=== PATIENT | female | born 1960 | race Caucasian/White ===

== ENCOUNTER 2022-01-12 07:21 | Outpatient (CLI) | payer OTHER, SELFPAY ==
--- NOTE | 2022-01-12 07:31 | CT_ITS ---
WS: [email or web address] CT CHEST, ABDOMEN AND PELVIS WITHOUT CONTRAST. HISTORY: ABNORMAL CHEST XRAY/ABDOMINAL BLOATING/PELVIC PAIN TECHNIQUE: Contiguous 5 mm axial imaging performed through the chest, abdomen and pelvis without IV c ontrast, oral contrast has been provided. Coronal and sagittal reformats chest. Coronal and sagittal reformats through the abdomen and pelvis. All CT scans at [facility] use at least one of thes e dose optimization techniques: automated exposure control; mA and/or kV adjustment per patient size (includes targeted exams where dose is matched to clinical indication); or iterative reconstruction. CONTRAST: None DLP: 1023.58 mGy.cm COMPARISON: None available. Chest CT: No pulmonary nodule or mass. No pneumonia. Lungs are clear and well aerated. Mild atheroscl erotic plaque within the thoracic aorta. No aneurysm. Normal size pulmonary artery. No mediastinal or hilar adenopathy. There is a very small amount of residual oral contrast in the distal esophagus. He art size is normal with no pericardial effusion. Abdomen CT: There is very slightly enlarged. No bile duct dilatation is evident without contrast. Gal lbladder is contracted. No adjacent inflammation. Normal size spleen. Very mildly prominent adrenal g lands. Mild perinephric stranding with no obstruction. No solid mass identified. Mild atherosclerosis abdominal aorta extending into the iliac arteries. Minimally distended stomach with oral contrast. No small bowel obstruction. There is contrast noted i ntermittently throughout the colon. No obstructing lesions are identified. There is some very mild wa ll thickening involving the hepatic flexure but this is probably due to underdistention. Similar find ings are noted throughout the transverse and descending colon. There are a few scattered sigmoid dive rticula. No acute diverticulitis. No adjacent stranding. Pelvic CT: No free fluid in the pelvis. Uterus is not identified. No pelvic mass. Mild degenerative curvature lumbar spine. CT/CT chest abd pel wo con IMPRESSION: 1. Negative chest CT. No mass or nodules or pneumonia. 2. Mild colonic wall thickening without adjacent inflammation. May be due to u nderdistention. Mild colitis not completely excluded. If the patient has not sanders d a colonoscopy recently this should be considered to evaluate for early neopla stic changes. 3. No ascites or adenopathy. 4. Atherosclerosis aorta.
[2022-01-12] MEDS: iohexol 300 mg/mL 50 mL Btl PO (09:21)
== END 2022-01-12 07:22 | disposition home or self-care (01) ==
LOC: RAD 07:22
PROVIDERS: PCP Family Medicine; Visit Provider Family Medicine
DX: R93.89 Abnormal findings on diagnostic imaging of other specified body structures (principal); R14.0 Abdominal distension (gaseous); R10.2 Pelvic and perineal pain; I70.0 Atherosclerosis of aorta
CPT/HCPCS: 71250; 74176

== ENCOUNTER 2022-01-23 07:50 | Outpatient (CLI) | payer OTHER, SELFPAY ==
--- NOTE | 2022-01-23 08:00 | US_ITS ---
WS: [email or web address] RENAL ULTRASOUND HISTORY: CHRONIC KIDNEY DZ-STAGE 3 COMPARISON: CT 01/12/2022 TECHNIQUE: 2-D and color Doppler imaging of the kidney submitted. Right kidney: 7.8 cm x 3.8 cm x 4.9 cm. Mild atrophy with increased echogenicity. No mass or obstruction. Left kidney: 7.6 cm x 3.3 cm x 5.2 cm. Mild atrophy with increased echogenicity. No mass or obstruction. Aorta: Mild atherosclerotic changes with no aneurysm. Urinary Bladder: Normal distention. US/US renal BI* [id number] IMPRESSION: Mild renal atrophy and chronic medical renal disease.
== END 2022-01-23 07:51 | disposition home or self-care (01) ==
LOC: RAD 07:51
PROVIDERS: PCP Family Medicine; Visit Provider Nurse Practitioner Family
DX: N18.30 Chronic kidney disease, stage 3 unspecified (principal)
CPT/HCPCS: 76770

== ENCOUNTER → 2022-02-01 09:28 | Outpatient (BNVA) | payer OTHER, SELFPAY | PROVIDERS: PCP Family Medicine; Visit Provider Internal Medicine Rheumatology | DX: M19.90 Unspecified osteoarthritis, unspecified site (principal); Z11.59 Encounter for screening for other viral diseases; Z79.899 Other long term (current) drug therapy; N18.30 Chronic kidney disease, stage 3 unspecified; B19.20 Unspecified viral hepatitis C without hepatic coma; M77.11 Lateral epicondylitis, right elbow; M70.61 Trochanteric bursitis, right hip; M70.62 Trochanteric bursitis, left hip; Y93.9 Activity, unspecified; Z90.710 Acquired absence of both cervix and uterus; Z71.85 Encounter for immunization safety counseling; F17.200 Nicotine dependence, unspecified, uncomplicated | CPT/HCPCS: 36415; 72170; 73130; 73562; 73630; 82306; 85651; 86038; 86140; 86200; 86431; 86480; 86704; 87340; 87522; 99204 ==

== ENCOUNTER 2022-03-08 10:12 | Outpatient (CLI) | payer OTHER, SELFPAY ==
--- NOTE | 2022-03-08 10:21 | MM_ITS ---
WS: [email or web address] VIEWS: MLO and CC views both breasts. 3D digital tomosynthesis is also included in this exam. Comparison made with prior exam of 07/30/2009, 08/01/2010, 12/05/2011, 11/25/2014, 03/23/2016, 08/07/2017. . Findings: There was no sign of mass, architectural distortion or suspicious calcification in either breast. Sc attered fibroglandular densities MM/[place] [id number] Impression: BI-RADS: 2-Benign FOLLOW-UP: 1 Year Follow-up This mammogram was also analyzed by the [employer].
== END 2022-03-08 10:13 | disposition home or self-care (01) ==
PROVIDERS: PCP Family Medicine; Visit Provider Family Medicine
DX: Z12.31 Encounter for screening mammogram for malignant neoplasm of breast (principal)
CPT/HCPCS: 77063; 77067

== ENCOUNTER → 2022-06-12 13:45 | Outpatient (BNVA) | payer OTHER, SELFPAY | PROVIDERS: PCP Family Medicine; Visit Provider Internal Medicine Rheumatology | DX: M15.9 Polyosteoarthritis, unspecified (principal); Z71.85 Encounter for immunization safety counseling; Z79.899 Other long term (current) drug therapy; M70.62 Trochanteric bursitis, left hip; M70.61 Trochanteric bursitis, right hip; Y93.9 Activity, unspecified; M77.11 Lateral epicondylitis, right elbow; Z82.61 Family history of arthritis; N18.9 Chronic kidney disease, unspecified | CPT/HCPCS: 99214 ==

== ENCOUNTER → 2023-01-16 10:20 | Outpatient (BNVA) | payer OTHER, SELFPAY | PROVIDERS: PCP Family Medicine; Visit Provider Nurse Practitioner Family | DX: L85.3 Xerosis cutis (principal); D22.5 Melanocytic nevi of trunk; L81.4 Other melanin hyperpigmentation; L57.8 Other skin changes due to chronic exposure to nonionizing radiation; L82.1 Other seborrheic keratosis; L57.0 Actinic keratosis; Z71.89 Other specified counseling | CPT/HCPCS: 17004; 99213 ==

== ENCOUNTER 2023-09-19 11:12 | Outpatient (CLI) | payer OTHER, SELFPAY ==
--- NOTE | 2023-09-19 11:18 | CT_ITS ---
WS: [email or web address] CT ABDOMEN PELVIS TECHNIQUE: Noncontrast CT of the abdomen and pelvis with coronal and sagittal reformatted images. CLINICAL INFORMATION: ACUTE ABDOMINAL PAIN/CHRONIC KIDNEY DZ COMPARISON: None. DLP: 270.[address] scans at [facility] use at least one of these dose optimization techniques: automated e xposure control; mA and/or kV adjustment per patient size (includes targeted exams where dose is matc hed to clinical indication); or iterative reconstruction. FINDINGS: Prior appendectomy. Prior hysterectomy. Lung bases are well aerated. Noncontrast liver and spleen are normal. Normal GE junction. Adrenal glands are normal. Noncontrast pancreas is normal. No hydronephr osis in either kidney. Normal caliber abdominal aorta. Mild aortic calcification. Sigmoid diverticulosis. No evidence of acute diverticulitis. Mild lumbar curve. Disc space narrowing worse at L4-5 with broad-based central disc protrusion. IMPRESSION: 1. No acute findings in the abdomen or pelvis. 2. Prior hysterectomy. 3. Prior appendectomy. 4. Sigmoid diverticulosis. No evidence of acute diverticulitis. 5. No hydronephrosis in either kidney. 6. Mild disc bulging L4-5 with broad-based central protrusion with mild central canal stenosis.
[2023-09-19] MEDS: iohexol 350 mg/mL 500 mL Btl (per mL) PO (12:39)
== END 2023-09-19 11:13 | disposition home or self-care (01) ==
LOC: RAD 11:13
PROVIDERS: PCP Family Medicine; Visit Provider Family Medicine
DX: R10.9 Unspecified abdominal pain (principal); N18.9 Chronic kidney disease, unspecified; Z90.89 Acquired absence of other organs; Z90.710 Acquired absence of both cervix and uterus; K57.30 Diverticulosis of large intestine without perforation or abscess without bleeding; M51.36 Other intervertebral disc degeneration, lumbar region; M48.061 Spinal stenosis, lumbar region without neurogenic claudication
CPT/HCPCS: 74176; Q9967

== ENCOUNTER 2023-09-19 11:12 | Outpatient (CLI) | payer OTHER, SELFPAY ==
--- NOTE | 2023-09-19 11:21 | US_ITS ---
WS: [email or web address] Complete ABDOMINAL ULTRASOUND HISTORY: HX OF HEPATITIS C/ABD PAIN COMPARISON: None available. Liver: 11.6 cm in length. Normal size liver. There are prominent, echogenic portal triads. No mass or bile duct dilatation. Portal Vein: Normal hepatopetal flow with monophasic waveform. Gallbladder: Normally distended gallbladder with no stones or wall thickening. CBD: 0.3 cm Pancreas: Normal size and echogenicity. Right kidney: 7.2 cm x 4.3 x 4.5 cm. Cortex:1.0 cm. Normal size and echogenicity. No hydronephrosis or mass. Left kidney: 8.2 cm x 3.8 cm x 4.8 cm. Cortex: 1.0 cm. Normal size and echogenicity. No hydronephrosis or mass. Spleen: Normal. Aorta and IVC: Unremarkable abdominal aorta and IVC. Impression: 1. Normal size liver. 2. Prominent, echogenic portal triads. This is a nonspecific finding but can be seen with thin body h abitus and acute hepatitis. 3. Normal gallbladder. 4. No bile duct dilatation.
== END 2023-09-19 11:13 | disposition home or self-care (01) ==
LOC: RAD 11:13
PROVIDERS: PCP Family Medicine; Visit Provider Family Medicine
DX: Z86.19 Personal history of other infectious and parasitic diseases (principal); R10.9 Unspecified abdominal pain
CPT/HCPCS: 76700

== ENCOUNTER 2024-04-25 13:51 | Outpatient (CLI) | payer OTHER, SELFPAY ==
--- NOTE | 2024-04-25 13:55 | MM_ITS ---
WS: [email or web address] BILATERAL 3D TOMOSYNTHESIS DIGITAL SCREENING MAMMOGRAPHY WITH CAD CLINICAL INFORMATION: SCREENING HISTORY: Screening mammogram. No current complaints. COMPARISON: 2021 TECHNIQUE: Bilateral CC and MLO views. FINDINGS: The breasts are composed of heterogeneous fibroglandular density tissue, which can limit the detectio n of small underlying mass lesions. No suspicious mass, asymmetry, calcifications, or architectural d istortion. No evidence of malignancy. A few tiny incidental punctate calcifications. Vascular calcifi cations. MM/[place] [id number] IMPRESSION: BI-RADS: 2-Benign FOLLOW UP: 1 Year Follow-up Recommend return to annual screening mammography.
== END 2024-04-25 13:52 | disposition home or self-care (01) ==
LOC: RAD 13:51
PROVIDERS: PCP Family Medicine; Visit Provider Family Medicine
DX: Z12.31 Encounter for screening mammogram for malignant neoplasm of breast (principal); R92.333 Mammographic heterogeneous density, bilateral breasts; R92.1 Mammographic calcification found on diagnostic imaging of breast
CPT/HCPCS: 77063; 77067

== ENCOUNTER 2024-08-25 11:17 | Outpatient (CLI) | payer OTHER, SELFPAY ==
[2024-08-25 12:37] LABS: Albumin Level 3.9 g/dL (3.5-5.2); Anion Gap 14.1 (5-19); Blood Urea Nitrogen 16 mg/dL (8-23); Calcium 8.8 mg/dL (8.5-10.5); Carbon Dioxide 28 mmol/L (22-29); Chloride 101 mmol/L (98-107); Glomerular Filtration Rate 41.5 mL/min (90-130); Glucose 69 mg/dL (65-115); Phosphorus 2.6 mg/dL (2.5-4.5); Potassium 4.1 mmol/L (3.5-5.1); Sodium 139 mmol/L (136-145)
[2024-08-25 12:41] LABS: Calcium 8.9 mg/dL (8.5-10.5)
[2024-08-25 12:44] LABS: Parathyroid Hormone 89.6 pg/mL (15-65)
== END 2024-08-25 11:18 | disposition home or self-care (01) ==
LOC: LAB 11:20
PROVIDERS: PCP Family Medicine; Visit Provider Internal Medicine Nephrology
DX: N18.32 Chronic kidney disease, stage 3b (principal); N25.81 Secondary hyperparathyroidism of renal origin
CPT/HCPCS: 36415; 80069; 82310; 83970

== ENCOUNTER 2024-11-25 14:20 | Outpatient (CLI) | payer OTHER, SELFPAY ==
[2024-11-25 15:06] LABS: Albumin Level 4.3 g/dL (3.5-5.2); Anion Gap 12.3 (5-19); Blood Urea Nitrogen 13 mg/dL (8-23); Calcium 9.1 mg/dL (8.5-10.5); Carbon Dioxide 29 mmol/L (22-29); Chloride 102 mmol/L (98-107); Glomerular Filtration Rate 38.1 mL/min (90-130); Glucose 95 mg/dL (65-115); Potassium 4.3 mmol/L (3.5-5.1); Sodium 139 mmol/L (136-145)
[2024-11-25 15:17] LABS: Calcium 9.3 mg/dL (8.5-10.5); Parathyroid Hormone 108.3 pg/mL (15-65)
== END 2024-11-25 14:21 | disposition home or self-care (01) ==
LOC: LAB 14:24
PROVIDERS: PCP Family Medicine; Visit Provider Internal Medicine Nephrology
DX: N18.32 Chronic kidney disease, stage 3b (principal); N25.81 Secondary hyperparathyroidism of renal origin
CPT/HCPCS: 36415; 80069; 82310; 83970

== ENCOUNTER → 2024-12-24 14:39 | Outpatient (BNVA) | payer OTHER, SELFPAY | PROVIDERS: PCP Family Medicine; Visit Provider Nurse Practitioner Family | DX: L82.1 Other seborrheic keratosis (principal); L85.3 Xerosis cutis; D22.5 Melanocytic nevi of trunk; L81.4 Other melanin hyperpigmentation; L57.8 Other skin changes due to chronic exposure to nonionizing radiation; D48.5 Neoplasm of uncertain behavior of skin; L57.0 Actinic keratosis | CPT/HCPCS: 11102; 17000; 99213 ==

== ENCOUNTER → 2025-03-02 11:18 | Outpatient (BNVA) | payer OTHER, SELFPAY | PROVIDERS: PCP Family Medicine; Visit Provider Nurse Practitioner Family | DX: L82.1 Other seborrheic keratosis (principal); D22.5 Melanocytic nevi of trunk; L81.4 Other melanin hyperpigmentation; L57.8 Other skin changes due to chronic exposure to nonionizing radiation; Z08 Encounter for follow-up examination after completed treatment for malignant neoplasm; Z85.828 Personal history of other malignant neoplasm of skin; L57.0 Actinic keratosis | CPT/HCPCS: 17000; 99213 ==

== ENCOUNTER → 2025-04-15 13:33 | Outpatient (BNVA) | payer OTHER, SELFPAY | PROVIDERS: PCP Family Medicine; Visit Provider Nurse Practitioner Family | DX: C44.622 Squamous cell carcinoma of skin of right upper limb, including shoulder (principal); L81.4 Other melanin hyperpigmentation; L57.8 Other skin changes due to chronic exposure to nonionizing radiation; Z08 Encounter for follow-up examination after completed treatment for malignant neoplasm; Z85.828 Personal history of other malignant neoplasm of skin; L57.0 Actinic keratosis | CPT/HCPCS: 17000; 99213 ==

== ENCOUNTER 2025-04-27 13:33 | Outpatient (CLI) | payer OTHER, SELFPAY ==
--- NOTE | 2025-04-27 13:40 | MM_ITS ---
WS: [email or web address] BILATERAL 3D TOMOSYNTHESIS DIGITAL SCREENING MAMMOGRAPHY WITH CAD CLINICAL INFORMATION: SCREENING HISTORY: Screening mammogram. No current complaints. COMPARISON: 2023 TECHNIQUE: Bilateral CC and MLO views. FINDINGS: The breasts are composed of heterogeneous fibroglandular density tissue, which can limit the detection of small underlying mass lesions. No suspicious mass, asymmetry, calcifications, or architectural distortion. No evidence of malignancy. Vascular calcification. A few incidental punctate calcifications. Dense parenchymal nodularity is unchanged. MM/MM [facility] tomosynthesis [id number] IMPRESSION: DENSITY: The breasts are heterogeneously dense, which may obscure small masses. BI-RADS: 2 - Benign FOLLOW UP: 1 Year Follow-up Recommend return to annual screening mammography.
== END 2025-04-27 13:34 | disposition home or self-care (01) ==
PROVIDERS: PCP Family Medicine; Visit Provider Family Medicine
DX: Z12.31 Encounter for screening mammogram for malignant neoplasm of breast (principal); R92.333 Mammographic heterogeneous density, bilateral breasts
CPT/HCPCS: 77063; 77067

== ENCOUNTER → 2025-04-30 07:56 | Outpatient (BNVA) | payer OTHER, SELFPAY | PROVIDERS: PCP Family Medicine; Visit Provider Dermatology | DX: D48.5 Neoplasm of uncertain behavior of skin (principal) | CPT/HCPCS: 11622; 13132 ==

== ENCOUNTER → 2025-05-14 09:31 | Outpatient (BNVA) | payer OTHER, SELFPAY | PROVIDERS: PCP Family Medicine; Visit Provider Orthopaedic Surgery | DX: S83.242A Other tear of medial meniscus, current injury, left knee, initial encounter (principal); W10.8XXA Fall (on) (from) other stairs and steps, initial encounter | CPT/HCPCS: 73560; 73565; 99204 ==

== ENCOUNTER 2025-05-29 11:30 | Oncology outpatient (recurring) (ONCR) | payer OTHER, SELFPAY ==
[2025-05-13 15:41] LABS: Hematocrit 55.1 % (36-47); Hemoglobin 18.20 g/dL (11.27-16.99); Mean Corpuscular HGB Conc 33.0 g/dL (30-55); Mean Corpuscular Hemoglobin 33.8 pg (27-33); Mean Corpuscular Volume 102.4 fl (85-98); Nucleated Red Blood Cells % 0 %; Platelet Count 210 10^3/cmm (157-399); Red Blood Count 5.38 10^6/uL (3.85-5.65); White Blood Count 5.86 10^3/uL (3.29-11.43)
[2025-05-13 15:57] LABS: Alanine Aminotransferase 34 U/L (0-33); Albumin Level 4.2 g/dL (3.5-5.2); Alkaline Phosphatase 100 U/L (35-105); Anion Gap 15.4 (5-19); Aspartate Amino Transferase 41 U/L (0-32); Blood Urea Nitrogen 16 mg/dL (8-23); Calcium 9.1 mg/dL (8.5-10.5); Carbon Dioxide 26 mmol/L (22-29); Chloride 101 mmol/L (98-107); Creatinine Clr Calc Pharmacy 35.2116; Ferritin 39 ng/mL (15-150); Globulin 3.0 g/dL (1.3-4.6); Glucose 88 mg/dL (65-115); Iron 131 ug/dL (37-145); Osmolality Calculated 287 mOsm/kg (285-295); Potassium 4.4 mmol/L (3.5-5.1); Sodium 138 mmol/L (136-145); Total Iron Binding Capacity 253 mcg/dl; Total Protein 7.2 g/dL (6.6-8.7); Unsaturated Iron Binding 122 ug/dL (112-347); Uric Acid 8.1 mg/dL (2.4-5.7)
[2025-05-15 12:07] LABS: Leukemia Profile (BBPL) See Report
[2025-05-16 18:34] LABS: BCR ABL1 (IS) 0.000 (0.000); BCR ABL1/ALB1 % 0.000 (0.000); P190 BCR ALB1 NOT DETECTED; P190 BCR ALB1 Yes Test Yes; P210 BCR ALB1 NOT DETECTED; P210 BCR ALB1 Yes Test Yes; Source blood
[2025-05-25 11:43] LABS: Hematocrit 55.2 % (36-47); Hemoglobin 18.20 g/dL (11.27-16.99); Mean Corpuscular HGB Conc 33.0 g/dL (30-55); Mean Corpuscular Hemoglobin 34.7 pg (27-33); Mean Corpuscular Volume 105.1 fl (85-98); Nucleated Red Blood Cells % 0 %; Platelet Count 189 10^3/cmm (157-399); Red Blood Count 5.25 10^6/uL (3.85-5.65); White Blood Count 5.97 10^3/uL (3.29-11.43)
[2025-05-25 12:03] LABS: Alanine Aminotransferase 31 U/L (0-33); Albumin Level 3.8 g/dL (3.5-5.2); Alkaline Phosphatase 100 U/L (35-105); Anion Gap 16.3 (5-19); Aspartate Amino Transferase 44 U/L (0-32); Blood Urea Nitrogen 18 mg/dL (8-23); Calcium 8.6 mg/dL (8.5-10.5); Carbon Dioxide 25 mmol/L (22-29); Chloride 103 mmol/L (98-107); Creatinine Clr Calc Pharmacy 30.8101; Ferritin 24 ng/mL (15-150); Globulin 2.6 g/dL (1.3-4.6); Glucose 77 mg/dL (65-115); Osmolality Calculated 291 mOsm/kg (285-295); Potassium 4.3 mmol/L (3.5-5.1); Sodium 140 mmol/L (136-145); Total Protein 6.4 g/dL (6.6-8.7)
--- NOTE | 2025-05-27 13:34 | MR_ITS ---
WS: [email or web address] MRI LEFT KNEE HISTORY: L KNEE PAIN COMPARISON: Radiograph 05/14/2025 Anterior cruciate ligament: ACL is intact. There is a small amount of increased signal in the central ligament. Posterior cruciate ligament: Intact. Medial collateral ligament: Small amount of fluid along the MCL. No tear. Posterior lateral corner structures: Intact. Medial menisci: Slightly globular, rounded shape of the posterior horn towards the meniscal root. Anterior horn is normal. Lateral meniscus: Intact. Normal signal, size and shape. Extensor mechanism: Distal quadriceps tendon and patellar tendons are intact. Fluid and soft tissue: Moderate-sized suprapatellar joint effusion. No Orozco's cyst. Osseous and articular structures: Patellofemoral compartment: Moderate narrowing patellofemoral joint. Mild diffuse chondromalacia. No fracture or marrow edema. Medial compartment: Moderate narrowing of the medial compartment. Diffuse thinning and fissuring of the cartilage. No marrow edema. Lateral compartment: Mild narrowing of the lateral compartment with thinning and fissuring of the cartilage. Soft tissue density of low signal on all sequences is identified in the central knee joint associated with the medial tibial spine. This is low signal extends along the superior surface of the tibial spine and is closely associated with the PCL. The exact site of this signal abnormality is not certain. This may be a flipped meniscal fragment. The source of this could be the abnormal contour of the posterior horn medial meniscus. If there was a small ACL tear not evident this may explain that finding. No fractures. May be a cartilage fragment. MR/MR knee LT wo con* [id number] IMPRESSION: 1. No ACL tear. 2. Unexplained low signal intra-articular focus leg along the superior medial tibial spine. Etiologies to consider are a meniscal fragment, partial tear of t he ACL or cartilage lesion. 3. There is a globular shape of the posterior horn medial meniscus towards the meniscal root. This may be the source of the intra-articular body. 4. Moderate narrowing of the patellofemoral and medial compartments with fissu ring of the cartilage. 5. Mild narrowing lateral compartment with chondromalacia. 6. Mild MCL sprain. 7. Moderate size suprapatellar joint effusion.
--- NOTE | 2025-05-27 13:35 | XR_ITS ---
WS: [email or web address] Exam: XR chest 2V* [id number] Date/Time of Exam: 05/27/2025 1:42 PM Reason For Exam: polycythemia Comparison 03/26/2016. The lungs are fully inflated and clear. Normal cardiomediastinal silhouette. No pleural effusions. Bony structures are intact. XR/XR chest 2V* [id number] IMPRESSION: 1. Negative chest.
[2025-05-27 15:48] LABS: Hematocrit 59.5 % (36-47); Hemoglobin 19.00 g/dL (11.27-16.99); Mean Corpuscular HGB Conc 31.9 g/dL (30-55); Mean Corpuscular Hemoglobin 33.5 pg (27-33); Mean Corpuscular Volume 104.9 fl (85-98); Nucleated Red Blood Cells % 0 %; Platelet Count 211 10^3/cmm (157-399); Red Blood Count 5.67 10^6/uL (3.85-5.65); White Blood Count 7.81 10^3/uL (3.29-11.43)
[2025-05-27 16:05] LABS: Albumin Level 4.1 g/dL (3.5-5.2); Anion Gap 11.3 (5-19); Blood Urea Nitrogen 19 mg/dL (8-23); Calcium 9.3 mg/dL (8.5-10.5); Carbon Dioxide 32 mmol/L (22-29); Chloride 100 mmol/L (98-107); Creatinine Clr Calc Pharmacy 24.6481; Glucose 77 mg/dL (65-115); Potassium 4.3 mmol/L (3.5-5.1); Sodium 139 mmol/L (136-145)
[2025-05-27 16:25] LABS: Calcium 9.5 mg/dL (8.5-10.5)
[2025-05-27 16:28] LABS: Creatinine Urine, Random 188 mg/dL (28-217); Microalbum Creatinine Ratio Ur 11 mg/dL (0-20)
[2025-05-28 22:20] LABS: BCR ABL1 (IS) 0.000 (0.000); BCR ABL1/ALB1 % 0.000 (0.000); P190 BCR ALB1 NOT DETECTED; P190 BCR ALB1 Yes Test Yes; P210 BCR ALB1 NOT DETECTED; P210 BCR ALB1 Yes Test Yes; Source blood
--- NOTE | 2025-05-29 11:29 | US_ITS ---
WS: [email or web address] Complete ABDOMINAL ULTRASOUND HISTORY: POLYCYTHEMIA COMPARISON: 09/19/2023 Liver: 12.6 cm in length. Normal size liver and echogenicity. No bile duct dilatation or mass. Portal Vein: Normal hepatopetal flow with monophasic waveform. Gallbladder: Normally distended gallbladder with no stones or wall thickening. CBD: 0.3 cm Pancreas: Normal size and echogenicity. Right kidney: 7.7 cm x 4.5 x 4.5 cm. Cortex:0.9 cm. Mild renal atrophy with diffuse cortical thinning and increased echogenicity. Left kidney: 8.7 cm x 4.8 cm x 4.9 cm. Cortex: 0.9 cm. Low normal size kidney with mild cortical thinning. Spleen: 8.7 cm. Normal size and echogenicity. Aorta and IVC: Unremarkable abdominal aorta and IVC. US/US abdomen complete* [id number] Impression: 1. Normal size spleen. 2. Mild RIGHT renal atrophy with diffuse cortical thinning and chronic medical renal disease. 3. LEFT kidney is normal size with mild cortical thinning. No obstruction. 4. Negative gallbladder.
== END 2025-06-01 01:00 | disposition home or self-care (01) ==
LOC: RAD 05-30 → ONCMED 06-02 07:47
PROVIDERS: PCP Family Medicine; Visit Provider Internal Medicine
DX: D75.1 Secondary polycythemia; N26.1 Atrophy of kidney (terminal); N28.89 Other specified disorders of kidney and ureter; Z53.9 Procedure and treatment not carried out, unspecified reason
CPT/HCPCS: 36415; 71046; 73721; 76700; 80053; 80069; 81206; 81207; 82044; 82306; 82310; 82668; 82728; 83540; 83550; 83615; 83970; 84550; 85025; 86140; 88184; 88185; 99204

== ENCOUNTER 2025-06-03 10:53 | Oncology outpatient (recurring) (ONCR) | payer OTHER, SELFPAY ==
[2025-06-03 12:06] LABS: Hematocrit 58.2 % (36-47); Hemoglobin 19.10 g/dL (11.27-16.99); Mean Corpuscular HGB Conc 32.8 g/dL (30-55); Mean Corpuscular Hemoglobin 34.6 pg (27-33); Mean Corpuscular Volume 105.4 fl (85-98); Nucleated Red Blood Cells % 0 %; Platelet Count 197 10^3/cmm (157-399); Red Blood Count 5.52 10^6/uL (3.85-5.65); White Blood Count 5.71 10^3/uL (3.29-11.43)
[2025-06-03 12:20] LABS: Alanine Aminotransferase 40 U/L (0-33); Albumin Level 4.0 g/dL (3.5-5.2); Alkaline Phosphatase 104 U/L (35-105); Anion Gap 16.7 (5-19); Aspartate Amino Transferase 49 U/L (0-32); Blood Urea Nitrogen 18 mg/dL (8-23); Calcium 9.1 mg/dL (8.5-10.5); Carbon Dioxide 27 mmol/L (22-29); Chloride 99 mmol/L (98-107); Creatinine Clr Calc Pharmacy 30.7070; Globulin 3.4 g/dL (1.3-4.6); Glucose 90 mg/dL (65-115); Osmolality Calculated 287 mOsm/kg (285-295); Potassium 4.7 mmol/L (3.5-5.1); Sodium 138 mmol/L (136-145); Total Protein 7.4 g/dL (6.6-8.7); Uric Acid 8.1 mg/dL (2.4-5.7)
[2025-06-10 15:15] LABS: CALR Exon 9 Mutation NOT DETECTED (NOT DETECTED); JAK2 Exon 12 Mutation NOT DETECTED (NOT DETECTED); JAK2 V617 Clinical Indication polycythemia; MPL Exon 10 Mutation NOT DETECTED (NOT DETECTED); Specimen Source blood
== END 2025-06-30 23:59 | disposition home or self-care (01) ==
PROVIDERS: PCP Family Medicine; Visit Provider Internal Medicine
DX: D75.1 Secondary polycythemia (principal); F17.210 Nicotine dependence, cigarettes, uncomplicated
CPT/HCPCS: 36415; 80053; 81219; 81270; 81279; 81339; 83615; 84550; 85025; 86140; 99213

== ENCOUNTER → 2025-08-04 11:11 | Outpatient (BNVA) | payer OTHER, SELFPAY | PROVIDERS: PCP Family Medicine; Visit Provider Nurse Practitioner Family | DX: L57.8 Other skin changes due to chronic exposure to nonionizing radiation (principal); L81.4 Other melanin hyperpigmentation; Z08 Encounter for follow-up examination after completed treatment for malignant neoplasm; Z85.828 Personal history of other malignant neoplasm of skin; L57.0 Actinic keratosis | CPT/HCPCS: 17000; 99214 ==

== ENCOUNTER 2025-09-16 11:11 | Oncology outpatient (recurring) (ONCR) | payer OTHER, SELFPAY ==
[2025-09-16 11:45] LABS: Hematocrit 57.2 % (36-47); Hemoglobin 18.70 g/dL (11.27-16.99); Mean Corpuscular HGB Conc 32.7 g/dL (30-55); Mean Corpuscular Hemoglobin 34.4 pg (27-33); Mean Corpuscular Volume 105.3 fl (85-98); Nucleated Red Blood Cells % 0 %; Platelet Count 179 10^3/cmm (157-399); Red Blood Count 5.43 10^6/uL (3.85-5.65); White Blood Count 5.31 10^3/uL (3.29-11.43)
[2025-09-16 12:07] LABS: Alanine Aminotransferase 20 U/L (0-33); Albumin Level 3.9 g/dL (3.5-5.2); Alkaline Phosphatase 95 U/L (35-105); Anion Gap 15.5 (5-19); Aspartate Amino Transferase 33 U/L (0-32); Blood Urea Nitrogen 18 mg/dL (8-23); Calcium 8.8 mg/dL (8.5-10.5); Carbon Dioxide 27 mmol/L (22-29); Chloride 104 mmol/L (98-107); Creatinine Clr Calc Pharmacy 31.2224; Globulin 2.7 g/dL (1.3-4.6); Glucose 87 mg/dL (65-115); Osmolality Calculated 295 mOsm/kg (285-295); Potassium 4.5 mmol/L (3.5-5.1); Sodium 142 mmol/L (136-145); Total Protein 6.6 g/dL (6.6-8.7); Uric Acid 7.5 mg/dL (2.4-5.7)
[2025-09-22 18:40] LABS: CALR Exon 9 Mutation NOT DETECTED (NOT DETECTED); JAK2 Exon 12 Mutation NOT DETECTED (NOT DETECTED); JAK2 V617 Clinical Indication polycythemia; MPL Exon 10 Mutation NOT DETECTED (NOT DETECTED); Specimen Source blood
== END 2025-09-30 23:59 | disposition home or self-care (01) ==
PROVIDERS: PCP Family Medicine; Visit Provider Internal Medicine
DX: D75.1 Secondary polycythemia (principal); F17.210 Nicotine dependence, cigarettes, uncomplicated; I12.9 Hypertensive chronic kidney disease with stage 1 through stage 4 chronic kidney disease, or unspecified chronic kidney disease; N18.30 Chronic kidney disease, stage 3 unspecified; M19.90 Unspecified osteoarthritis, unspecified site; B19.20 Unspecified viral hepatitis C without hepatic coma; Z90.710 Acquired absence of both cervix and uterus
CPT/HCPCS: 80053; 81219; 81270; 81279; 81339; 83615; 84550; 85025; 86140; 99213